=== PATIENT | female | born 1955 ===

== ENCOUNTER 2019-04-09 10:26 | Outpatient (CLI) | payer OTHER | END 2019-04-09 10:27 | disposition home or self-care (01) | LOC: RAD 10:26 | DX: R05 Cough (principal); J15.0 Pneumonia due to Klebsiella pneumoniae ==

== ENCOUNTER 2019-04-09 10:54 | Outpatient (CLI) | payer OTHER | END 2019-04-09 11:09 | disposition home or self-care (01) | LOC: EKG 10:54 | DX: R94.31 Abnormal electrocardiogram [ECG] [EKG] (principal) ==

== ENCOUNTER → 2019-04-22 | Day surgery (SDC) | payer OTHER ==
[~2019-04-22] MED LIST: AMBIEN10 MG; BETAXOLOL HCL20 MG; CLONAZEPAM1 M1; IRBESARTAN-HCT1 EAC1; SIMVASTATIN5 MG; SYNTHROID50 MCG; ZOLOFT100 MG
== END | disposition home or self-care (01) ==
LOC: CIR.AMB 05:18 → EDSTATUS 11:36 → CIR.AMB 11:36 → SURH 17:08
PROVIDERS: Specialist
PROC: 0J013ZZ Alteration of Face Subcutaneous Tissue and Fascia, Percutaneous Approach (ICD-10-PCS; 2019-04-22)
PROC: 0J053ZZ Alteration of Left Neck Subcutaneous Tissue and Fascia, Percutaneous Approach (ICD-10-PCS; 2019-04-22)
PROC: 0J043ZZ Alteration of Right Neck Subcutaneous Tissue and Fascia, Percutaneous Approach (ICD-10-PCS; 2019-04-22)
PROC: 0W020ZZ Alteration of Face, Open Approach (ICD-10-PCS; principal; 2019-04-22 07:00)
DX: Z41.1 Encounter for cosmetic surgery (principal); L90.8 Other atrophic disorders of skin; L98.7 Excessive and redundant skin and subcutaneous tissue